=== PATIENT | female | born 1990 | race Caucasian/White ===

== ENCOUNTER 2022-03-22 11:32 | Emergency (ER) | payer SELFPAY ==
[~2022-03-22] VITALS: Ht 152.4 cm; Wt 66.7 kg
[2022-03-22 11:38] VITALS: BP 156/78
[2022-03-22] MEDS ORDERED: KETOROLAC TROMETH 60MG/2ML VIAL IM ONE (13:15)
[2022-03-22] MEDS ORDERED: SUMA50TA2 PO (13:27)
== END 2022-03-22 13:35 | disposition home or self-care (01) ==
LOC: ER 11:32
DX: G43.909 Migraine, unspecified, not intractable, without status migrainosus (principal)
CPT/HCPCS: 96372; 99283; J1885